=== PATIENT | male | born 1945 | race Caucasian/White ===

== ENCOUNTER → 2024-04-16 09:43 | Outpatient (REF) | payer MEDICARE, BC, SELFPAY ==
[2024-04-16 10:57] LABS: % Basophils 0.3 % (0-2); % Eosinophils 0.8 % (0-6); % Immature Granulocytes 0.5 % (0-0.5); % Lymphocytes 17.7 % (20.5-51.1); % Monocytes 8.9 % (1.7-9.3); % Neutrophils 71.8 % (42.2-75.2); Absolute Eosinophils 0.1 10^3/uL (0-0.7); Absolute Lymphocytes 1.3 10^3/uL (1.2-3.4); Absolute Monocytes 0.7 10^3/uL (0.1-0.6); Absolute Neutrophils 5.3 10^3/uL (1.4-6.5); Hematocrit 38.3 % (39.0-52.0); Hemoglobin 12.9 g/dL (13.0-18.0); Mean Corp Hgb Conc. 33.7 g/dL (33.0-37.0); Mean Corpuscular Hgb 30.6 pg (27.0-31.0); Mean Corpuscular Volume 90.8 fL (80.0-94.0); Mean Platelet Volume 10.5 fL (7.4-10.4); Nucleated Red Blood Cells % 0 % (-); Platelet Count 191 10^3/uL (130-400); Red Blood Cell Count 4.22 10^6/uL (4.70-6.10); Red Cell Dist. Width 13.4 % (11.5-14.5); White Blood Cell Count 7.3 10^3/uL (4.8-10.8)
[2024-04-16 11:29] LABS: ALT (SGPT) 30 U/L (0-50); AST (SGOT) 37 U/L (17-59); Albumin 3.9 g/dl (3.5-5.0); Alkaline Phosphatase 66 U/L (38-126); Blood Urea Nitrogen 23 mg/dl (9-20); Calcium 9.2 mg/dl (8.4-10.2); Carbon Dioxide 27 mmol/L (22-30); Chloride 107 mmol/L (98-107); Glucose 95 mg/dl (70-99); HDL Cholesterol 50 mg/dl; LDL Cholesterol, Calculated 72 mg/dl; Potassium 5.1 mmol/L (3.5-5.1); Sodium 139 mmol/L (135-145); Total Bilirubin 0.6 mg/dl (0.2-1.3); Total Cholesterol 137 mg/dl (50-199); Total Protein 6.7 g/dl (6.3-8.2); Triglyceride 79 mg/dl (10-149); Very Low Density Lipoprotein 15 mg/dl (0-30); eGFR > 60.00
[2024-04-17 12:00] LABS: Glycohemoglobin (HgbA1c) 5.6 % (4.0-5.6)
[2024-04-17 18:31] LABS: PSA Total 0.5 ng/mL (0.0-4.0)
== END ==
LOC: REG 09:43
PROVIDERS: ATTENDING PHYSICIAN Internal Medicine; FAMILY PHYSICIAN Internal Medicine Cardiovascular Disease
DX: Z00.00 Encounter for general adult medical examination without abnormal findings (principal); R73.09 Other abnormal glucose; E78.5 Hyperlipidemia, unspecified; N40.0 Benign prostatic hyperplasia without lower urinary tract symptoms; E03.9 Hypothyroidism, unspecified; R53.83 Other fatigue
CPT/HCPCS: 36415; 80053; 80061; 83036; 84153; 84154; 84443; 85025

== ENCOUNTER 2024-04-22 01:13 | Emergency (ER) | payer MEDICARE, BC, SELFPAY ==
[2024-04-22] VITALS (7 sets, daily range): BP systolic 130–176; BP diastolic 63–91; PULSE 72–89; BMI 24.6
--- NOTE | 2024-04-22 01:21 | ED.GENMED ---
History of Present Illness
<HEIDY Bowling - Last Filed: 04/22/24 05:33>
General
Chief Complaint: Dizziness
Source: patient
Exam Limitations: none
Time Seen by Provider: 04/22/24 01:21
Nursing documentation reviewed up to this point in time: agreed with
History of Present Illness
History of Present Illness:
79 year old male presents for evaluation of dizziness. Pt reports that at approximately 23:00 on 04/21 he began experiencing intermittent episodes of dizziness upon standing, relieved with lying supine. Pt denies similar episodes of dizziness in the
past. No syncopal episode reported. Pt denies fall and hitting his head. Pt describes his dizziness as a sensation of the room spinning, and endorses intermittent nausea and diaphoresis accompanying the dizziness. He is currently followed by
cardiology due to history of mechanical aortic valve and bypass surgery and is taking metoprolol 50 mg daily. Pt adds that he was started on Flomax approximately 2 months ago as well. He notes that his home BP readings over the last week have been
104-108 systolic, which is decreased from his usual home BP. Endorses recent COVID-19 infection which began on 04/08. Pt denies CP, SOB, N/V, abdominal pain, changes in stool/bloody stool, urinary symptoms, MORRISON, dysarthria, and decreased oral intake.
Past History
<HEIDY Bowling - Last Filed: 04/22/24 05:33>
Past History
ED Past Medical History: Other (Coronary disease with CABG, aortic valve it replacement with a mechanical valve, paroxysmal atrial fib after bypass, gout, but sounds like fungal balanitis)
Social History
Tobacco: Non-smoker
Alcohol: Occasional
Family History
Family History: Other (Mother with lupus)
Review of Systems
<HEIDY Bowling - Last Filed: 04/22/24 05:33>
Review of Systems
Allergies reviewed?: Yes
Constitutional: Reports no symptoms
EENT: Reports no symptoms
Respiratory: Reports no symptoms
Cardiac: Reports no symptoms
ABD/GI: Reports no symptoms
: Reports no symptoms
Musculoskeletal: Reports no symptoms
Skin: Reports no symptoms
Neurological: Reports dizzy
Endocrine: Reports no symptoms
Hematologic/Lymphatic: Reports no symptoms
Psychiatric: Reports no symptoms
Phy Exam
<ST TawnyaPR - Last Filed: 04/22/24 05:33>
General Physical Exam
General Presentation: well appearing
General age: appears stated age
General Skin: warm
General Habitus: elderly
General Mental: alert
General Hydration: appears well hydrated
ENT Exam
ENT Exam: EOMI
Cardiovascular Exam
Cardiovascular Exam: regular rate/rhythm and other (systolic click)
Pulmonary Exam
Pulmonary Exam: lungs clear and no respiratory distress
Gastrointestinal Exam
Gastrointestinal Exam: normal bowel sounds
Neurological Exam
Neurological Exam: alert, oriented x3, no motor deficits, no sensory deficits and speech normal
Skin Exam
Skin Exam: normal color
Course
<ST TawnyaPR - Last Filed: 04/22/24 05:33>
Orders/Labs/Results
Orders:
Orders
04/22/24 01:15
Electrocardiogram (*1) Urgent
Reason for Study: Vertigo / Dizzy
04/22/24 01:21
Complete Blood Count/With Diff Urgent
Comprehensive Metabolic Panel Urgent
TSH Reflex To Free T4 Urgent
Troponin I Urgent
04/22/24 01:26
D-Dimer Urgent
Prothrombin Time Urgent
Comment: ADD ON
04/22/24 01:36
Add On- LAB Urgent
Comments:: pt on coumadin
Tests Added?: pt/irn
Orthostatic VS- Treatment ONCE
04/22/24 02:07
Meclizine [Antivert] 25 mg PO NOW STA
04/22/24 03:16
0.9% Sodium Chloride 1000 ml [Nss] 1,000 ml IV BOLUS
04/22/24 03:21
Meclizine [Antivert] 25 mg PO NOW STA
Abnormal Lab Results
04/22/24 04/22/24
01:21 01:26
RBC 4.12 L 10^6/uL
(4.70-6.10)
Hgb 12.8 L g/dL
(13.0-18.0)
Hct 36.5 L %
(39.0-52.0)
MCH 31.1 H pg
(27.0-31.0)
Absolute Monos (auto) 0.9 H 10^3/uL
(0.1-0.6)
Monocytes % 13.0 H %
(1.7-9.3)
PT 23.9 H Sec
(11.4-14.6)
BUN 22 H mg/dl
(9-20)
Glucose 115 H mg/dl
(70-99)
04/22/24 01:21
04/22/24 01:21
Vital Signs
Initial and Last Documented VS:
Initial Vital Signs
Temp Pulse Resp BP Pulse Ox
98.0 F 72 16 163/75 99
04/22/24 01:16 04/22/24 01:16 04/22/24 01:16 04/22/24 01:16 04/22/24 01:16
Last Documented Vital Signs
Temp Pulse Resp BP Pulse Ox
98.0 F 82 22 138/63 99
04/22/24 01:16 04/22/24 05:00 04/22/24 05:00 04/22/24 04:00 04/22/24 04:45
<Tania R. Overton, DO - Last Filed: 04/22/24 05:28>
Orders/Labs/Results
Orders:
Orders
04/22/24 01:15
Electrocardiogram (*1) Urgent
Reason for Study: Vertigo / Dizzy
04/22/24 01:21
Complete Blood Count/With Diff Urgent
Comprehensive Metabolic Panel Urgent
TSH Reflex To Free T4 Urgent
Troponin I Urgent
04/22/24 01:26
D-Dimer Urgent
Prothrombin Time Urgent
Comment: ADD ON
04/22/24 01:36
Add On- LAB Urgent
Comments:: pt on coumadin
Tests Added?: pt/irn
Orthostatic VS- Treatment ONCE
04/22/24 02:07
Meclizine [Antivert] 25 mg PO NOW STA
04/22/24 03:16
0.9% Sodium Chloride 1000 ml [Nss] 1,000 ml IV BOLUS
04/22/24 03:21
Meclizine [Antivert] 25 mg PO NOW STA
Abnormal Lab Results
04/22/24 04/22/24
01:21 01:26
RBC 4.12 L 10^6/uL
(4.70-6.10)
Hgb 12.8 L g/dL
(13.0-18.0)
Hct 36.5 L %
(39.0-52.0)
MCH 31.1 H pg
(27.0-31.0)
Absolute Monos (auto) 0.9 H 10^3/uL
(0.1-0.6)
Monocytes % 13.0 H %
(1.7-9.3)
PT 23.9 H Sec
(11.4-14.6)
BUN 22 H mg/dl
(9-20)
Glucose 115 H mg/dl
(70-99)
04/22/24 01:21
04/22/24 01:21
Vital Signs
Initial and Last Documented VS:
Initial Vital Signs
Temp Pulse Resp BP Pulse Ox
98.0 F 72 16 163/75 99
04/22/24 01:16 04/22/24 01:16 04/22/24 01:16 04/22/24 01:16 04/22/24 01:16
Last Documented Vital Signs
Temp Pulse Resp BP Pulse Ox
98.0 F 82 22 138/63 99
04/22/24 01:16 04/22/24 05:00 04/22/24 05:00 04/22/24 04:00 04/22/24 04:45
<HEIDY Bowling - Last Filed: 04/22/24 05:33>
MDM/Problems Addressed
Differential Diagnosis Includes:
Anemia, orthostatic hypotension, dehydration, Meniere's disease, colorectal cancer, CVA
<HEIDY Bowling - Last Filed: 04/22/24 05:33>
*Critical Care Note
Total Time (30-74mins, 75-104mins- exclusive of procedures): Not Applicable
<Tania Overton DO - Last Filed: 04/22/24 05:28>
*Pulse Oximetry
Patient hypoxic: no
*EKG
Interpreted by ED Provider?: Yes
Comparison EKG: no changes ( Unchanged from previous December 2021)
Rate: normal
Rhythm: sinus
[place]: normal axis
Interval: normal QT interval
QRS Pattern: right bundle branch block
Ischemia: non-specific ST changes
*Income Tax Manager Interpretation
Rate: normal
Interpretation: normal
Rhythm: sinus
*Critical Care Note
Total Time (30-74mins, 75-104mins- exclusive of procedures): Not Applicable
<HEIDY Bowling - Last Filed: 04/22/24 05:33>
Update Note
Update Note:
05:17 - pt able to walk with assistance and reports no sensation of dizziness. Has received two doses of Meclizine
ED Attending Note
<HEIDY Bowling - Last Filed: 04/22/24 05:33>
-
Portions of this chart may have been created with voice recognition software.� Occasional wrong word or��sound alike� substitutions may have occurred due to the inherent limitations of voice recognition software.
<Tania Overton DO - Last Filed: 04/22/24 05:28>
ED Attending Note
Patient seen and examined by attending physician: Yes
I performed the substantive portion of visit, reviewed & personally made and approve the management plan that is documented in note by myself or BIANKA.: Yes
ED Attending Note:
This is a 79-year-old gentleman with history of hypertension, hyperlipidemia, CAD with prior history of CABG as well as mechanical aortic valve replacement, chronically maintained on Coumadin. He suffered COVID URI 2 weeks ago, tested positive for
COVID April 08 and admits to several day history of cough, fever with Tmax of 102, myalgias. Symptoms resolved within 3 to 4 days.
He has been feeling well over the past week but tonight around 11 PM when he stood up from the couch he suddenly became dizzy, lightheaded with brief nausea and brief diaphoresis. Symptoms improved/resolved with sitting back down but recurred each
time he attempted to stand up. He denies headache, no chest pain or palpitations, no abdominal pain.
He denies grossly black nor tarry stools but does admit to somewhat chronic partially black to brown stool mixed with call box wirer brown stool.
He has history of BPH, chronic urinary frequency, nocturia and has been following with Dr. Hooker. Started on Flomax 2 months ago. Daytime urinary frequency is markedly improved but he continues with significant nocturia getting up at least 7
times a night to urinate. He denies history of urinary obstruction/retention.
He monitors his INR at home. It was therapeutic at 2.5 on Monday, April 16. No change in Coumadin dosage.
He monitors his blood pressure at home and states over the past week his blood pressure has been mildly low at 104-105 systolic. He states his blood pressure generally runs 110-115 systolic.
GENERAL: 79-year-old gentleman appears his stated age, awake and alert, pleasant, appears in no acute distress.
EYE: pupils equal and reactive. Extraocular muscles intact. No nystagmus. Negative test of skew. Anicteric
NECK: Supple, nontender, no meningismus, no significant adenopathy. No JVD.
ENT: posterior pharynx is clear, oral mucosa is moist. Bilateral hearing aids. Nares patent.
CARDIAC: Regular rate and rhythm. Mechanical click noted
LUNGS: Clear breath sounds bilaterally, no acute respiratory distress, no wheezes/rales/rhonchi
ABDOMEN: Soft, nondistended, without focal tenderness, no r/g, no cvat. normoactive BS. Rectal exam reveals scant soft brown stool, heme-negative.
NEUROLOGICAL: Alert and oriented x3, no focal neuro deficits. Prompt vertiginous symptoms with sitting up.
SKIN: Warm and dry, normal color, skin intact. No rash.
MUSCULOSKELETAL: No C/C/E. peripheral pulses are full and equal b/l. No palpable tenderness.
PSYCH: Normal and appropriate interaction.
Patient presents with abrupt onset of dizziness most noted with standing but also markedly reproduced with repositioning from supine to sitting up.
Concern for acute vertiginous symptoms versus orthostasis. Will check orthostatic vital signs.
Labs thus far reveal mild anemia with hemoglobin of 12.8, overall similar to 1 week ago at 12.9. Eye symptoms are acute tonight, has been asymptomatic throughout the week, likely mild anemia is not a contributing factor.
Rectal exam is heme-negative.
No evidence of arrhythmia on EKG nor monitor tech.
04/22/2024 0322 AM
Patient had marked dizziness with just sitting up during orthostatic vital signs. No change in blood pressure from lying to sitting thus he was given a dose of Antivert and is currently feeling markedly improved.
He continues with very mild dizziness upon sitting up but much improved. No return of nausea.
Labs are unremarkable, similar and unchanged from 1 week ago. Troponin is negative.
INR 2.15. D-dimer is negative.
Initial hypertension improving currently 130/60.
Will give a bolus of IV fluids and another dose of Antivert for what I suspect is benign paroxysmal peripheral vertigo.
Will continue to observe and if he continues to improve we will plan to discharge to home with a short course of as needed Antivert and prompt follow-up with PCP.
Discharge Plan
Departure
Patient Disposition: Home (Routine Discharge)
Date of Disposition: 04/22/24
Time of Disposition: 05:25
Patient with high blood pressure during this ER visit?: No
Condition: Good
Discharge Problem:
acute positional vertigo
Instructions: Vertigo (a Type of Dizziness) (DC)
Prescriptions:
New
meclizine 25 mg tablet
25 mg PO QID PRN (Reason: dizziness, nausea) Qty: 20 0RF
No Action
cyclobenzaprine 10 MG tablet
10 mg PO HS
warfarin [Jantoven] 10 MG tablet
10 mg PO HS
allopurinol 100 MG tablet
100 mg PO HS
levothyroxine 100 MCG tablet
100 mcg PO DAILY AT 0700
montelukast 10 MG tablet
10 mg PO HS
rosuvastatin [Crestor] 40 MG tablet
40 mg PO HS
cholecalciferol (vitamin D3) 2,000 UNITS tablet
2,000 units PO QPM
acetaminophen 325 MG tablet
650 mg PO Q4HPRN PRN (Reason: mild pain) Qty: 1 0RF
metoprolol succinate 25 mg Tablet Extended Release 24 Hr
25 mg PO HS
amlodipine
Referrals:
Marvin Simpson MD [Family Provider] - Call in 1-3 days for appt
Interventions
Interventions:
*Risk Screen - Suicide Last Done: 04/22/24 01:16
*General Assessment Last Done: 04/22/24 01:16
*Neglect/Abuse Screening Last Done: 04/22/24 01:16
*ED COVID-19 Vaccine History Last Done: 04/22/24 01:16
ED- Neurological Assessment Last Done: 04/22/24 01:20
Discharge Date and Time
Print Language: LUX[place]BOURG[place]
[2024-04-22 01:27] LABS: % Basophils 0.3 % (0-2); % Immature Granulocytes 0.3 % (0-0.5); % Neutrophils 62.4 % (42.2-75.2); Absolute Eosinophils 0.1 10^3/uL (0-0.7); Absolute Lymphocytes 1.6 10^3/uL (1.2-3.4); Absolute Monocytes 0.9 10^3/uL (0.1-0.6); Absolute Neutrophils 4.4 10^3/uL (1.4-6.5); Hematocrit 36.5 % (39.0-52.0); Hemoglobin 12.8 g/dL (13.0-18.0); Mean Corp Hgb Conc. 35.1 g/dL (33.0-37.0); Mean Corpuscular Hgb 31.1 pg (27.0-31.0); Mean Corpuscular Volume 88.6 fL (80.0-94.0); Mean Platelet Volume 9.9 fL (7.4-10.4); Nucleated Red Blood Cells % 0 % (-); Platelet Count 192 10^3/uL (130-400); Red Blood Cell Count 4.12 10^6/uL (4.70-6.10); Red Cell Dist. Width 13.3 % (11.5-14.5)
[2024-04-22 01:59] LABS: Troponin I < 0.012 ng/ml
[2024-04-22 02:03] LABS: ALT (SGPT) 19 U/L (0-50); AST (SGOT) 31 U/L (17-59); Albumin 3.8 g/dl (3.5-5.0); Alkaline Phosphatase 68 U/L (38-126); Blood Urea Nitrogen 22 mg/dl (9-20); Calcium 9.2 mg/dl (8.4-10.2); Carbon Dioxide 24 mmol/L (22-30); Chloride 107 mmol/L (98-107); Estimated Creatinine Clearance 73 ml/min; Glucose 115 mg/dl (70-99); Potassium 4.1 mmol/L (3.5-5.1); Sodium 136 mmol/L (135-145); Total Bilirubin 0.7 mg/dl (0.2-1.3); Total Protein 6.5 g/dl (6.3-8.2); eGFR > 60.00
[2024-04-22 02:04] LABS: INR 2.15; PT 23.9 Sec (11.4-14.6)
[2024-04-22 02:06] LABS: D-Dimer 0.27 ug/mlFEU (0.00-0.50)
[2024-04-22 02:13] LABS: TSH Reflex To Free T4 2.23 uIU/ml (0.47-4.68)
[2024-04-22] MEDS: ANTIVERT 25 MG PO ×2 (02:15→03:38)
[2024-04-22] MEDS: NSS 1000 IV (03:36)
== END 2024-04-22 05:45 | disposition home or self-care (01) ==
LOC: EMR 01:13
PROVIDERS: EMERGENCY PHYSICIAN Emergency Medicine; FAMILY PHYSICIAN Internal Medicine
DX: H81.10 Benign paroxysmal vertigo, unspecified ear (principal); I10 Essential (primary) hypertension; I25.10 Atherosclerotic heart disease of native coronary artery without angina pectoris; E78.5 Hyperlipidemia, unspecified
CPT/HCPCS: 99284; 96360; 80053; 84443; 84484; 85025; 85379; 85610; 93005

== ENCOUNTER → 2024-06-03 08:14 | Outpatient (REF) | payer MEDICARE, BC, SELFPAY ==
[2024-06-03 09:44] LABS: % Basophils 0.5 % (0-2); % Eosinophils 1.8 % (0-6); % Immature Granulocytes 0.2 % (0-0.5); % Lymphocytes 21.7 % (20.5-51.1); % Neutrophils 64.8 % (42.2-75.2); Absolute Eosinophils 0.1 10^3/uL (0-0.7); Absolute Lymphocytes 1.2 10^3/uL (1.2-3.4); Absolute Monocytes 0.6 10^3/uL (0.1-0.6); Absolute Neutrophils 3.6 10^3/uL (1.4-6.5); Hematocrit 40.7 % (39.0-52.0); Hemoglobin 13.7 g/dL (13.0-18.0); Mean Corp Hgb Conc. 33.7 g/dL (33.0-37.0); Mean Corpuscular Hgb 31.4 pg (27.0-31.0); Mean Corpuscular Volume 93.3 fL (80.0-94.0); Mean Platelet Volume 10.6 fL (7.4-10.4); Nucleated Red Blood Cells % 0 % (-); Platelet Count 155 10^3/uL (130-400); Red Blood Cell Count 4.36 10^6/uL (4.70-6.10); Red Cell Dist. Width 13.7 % (11.5-14.5); White Blood Cell Count 5.5 10^3/uL (4.8-10.8)
[2024-06-03 10:23] LABS: ALT (SGPT) 27 U/L (0-50); AST (SGOT) 42 U/L (17-59); Alkaline Phosphatase 60 U/L (38-126); Blood Urea Nitrogen 17 mg/dl (9-20); Calcium 9.8 mg/dl (8.4-10.2); Carbon Dioxide 28 mmol/L (22-30); Chloride 106 mmol/L (98-107); Glucose 94 mg/dl (70-99); HDL Cholesterol 65 mg/dl; LDL Cholesterol, Calculated 67 mg/dl; Potassium 4.9 mmol/L (3.5-5.1); Sodium 142 mmol/L (135-145); Total Bilirubin 0.8 mg/dl (0.2-1.3); Total Cholesterol 147 mg/dl (50-199); Total Protein 6.7 g/dl (6.3-8.2); Triglyceride 78 mg/dl (10-149); Very Low Density Lipoprotein 15 mg/dl (0-30); eGFR > 60.00
[2024-06-03 10:43] LABS: TSH 1.01 uIU/ml (0.47-4.68)
[2024-06-04 18:22] LABS: PSA Total 0.6 ng/mL (0.0-4.0)
== END ==
LOC: REG 08:14
PROVIDERS: ATTENDING PHYSICIAN Internal Medicine
DX: I10 Essential (primary) hypertension (principal); Z00.00 Encounter for general adult medical examination without abnormal findings; R53.83 Other fatigue; E78.5 Hyperlipidemia, unspecified; R97.20 Elevated prostate specific antigen [PSA]
CPT/HCPCS: 36415; 80053; 80061; 84153; 84154; 84443; 85025

== ENCOUNTER 2024-10-04 16:27 | Emergency (ER) | payer MEDICARE, BC, SELFPAY ==
[2024-10-04 16:47] VITALS: BP 153/94
[2024-10-04 17:32] LABS: % Basophils 0.2 % (0-2); % Eosinophils 0.2 % (0-6); % Immature Granulocytes 0.4 % (0-0.5); % Lymphocytes 16.2 % (20.5-51.1); % Monocytes 9.2 % (1.7-9.3); % Neutrophils 73.8 % (42.2-75.2); Absolute Lymphocytes 1.3 10^3/uL (1.2-3.4); Absolute Monocytes 0.8 10^3/uL (0.1-0.6); Hematocrit 42.8 % (39.0-52.0); Hemoglobin 14.4 g/dL (13.0-18.0); Mean Corp Hgb Conc. 33.6 g/dL (33.0-37.0); Mean Corpuscular Hgb 30.6 pg (27.0-31.0); Mean Corpuscular Volume 91.1 fL (80.0-94.0); Mean Platelet Volume 10.5 fL (7.4-10.4); Nucleated Red Blood Cells % 0 % (-); Platelet Count 176 10^3/uL (130-400); Red Cell Dist. Width 13.2 % (11.5-14.5); White Blood Cell Count 8.2 10^3/uL (4.8-10.8)
[2024-10-04 17:36] LABS: INR 1.65
[2024-10-04 17:37] LABS: APTT 30.8 Sec (23.4-35.0)
[2024-10-04 17:40] LABS: ALT (SGPT) 27 U/L (0-50); AST (SGOT) 38 U/L (17-59); Albumin 4.4 g/dl (3.5-5.0); Alkaline Phosphatase 65 U/L (38-126); Blood Urea Nitrogen 20 mg/dl (9-20); Calcium 9.4 mg/dl (8.4-10.2); Carbon Dioxide 24 mmol/L (22-30); Chloride 105 mmol/L (98-107); Glucose 106 mg/dl (70-99); Potassium 4.3 mmol/L (3.5-5.1); Sodium 136 mmol/L (135-145); Total Bilirubin 0.8 mg/dl (0.2-1.3); Total Protein 7.2 g/dl (6.3-8.2); eGFR > 60.00
[2024-10-04 18:58] VITALS: BP 133/83
[2024-10-04 19:00] VITALS: BP 134/64
--- NOTE | 2024-10-04 19:21 | ED.CVA ---
History of Present Illness
General
Chief Complaint: Headache
Source: patient and spouse
Exam Limitations: none
Time Seen by Provider: 10/04/24 19:18
Nursing documentation reviewed up to this point in time: agreed with
Onset of Stroke Symptoms
Onset of symptoms known: Yes
Date of onset of symptoms: 10/04/24
Time of onset of symptoms: 12:00
Time pt last seen normal is known: Yes
Date last time pt seen normal: 10/04/24
History of Present Illness
History of Present Illness:
79-year-old male presents to the emergency department due to a migraine around noon, and then difficulty with memory recall, expressive aphasia difficulty pronouncing words. Symptom lasted 45 minutes. They felt bigger than his normal migraine
auras.
Past History
Past History
ED Past Medical History: Arrthythmia, CAD, HTN, Hypercholesterolemia, Other (Migraine) and Other (Coronary disease with CABG, aortic valve it replacement with a mechanical valve, paroxysmal atrial fib after bypass, gout, but sounds like fungal
balanitis)
Social History
Tobacco: Non-smoker
Alcohol: Occasional
Drug: None
Family History
Family History: Other (Mother with lupus)
Review of Systems
Review of Systems
Allergies reviewed?: Yes
All Other Systems: Not applicable
Constitutional: Reports no symptoms
EENT: Reports no symptoms
Respiratory: Reports no symptoms
Cardiac: Reports no symptoms
ABD/GI: Reports no symptoms
: Reports no symptoms
Musculoskeletal: Reports no symptoms
Skin: Reports no symptoms
Neurological: Reports other (difficulty speaking)
Endocrine: Reports no symptoms
Hematologic/Lymphatic: Reports no symptoms
Psychiatric: Reports no symptoms
Phy Exam
Physical Exam
Physical Exam:
Physical Exam
General: no apparent distress, not acutely ill
Neck: supple. no meningeal signs. normal posterior pharynx
Heart: s1/s2 regular rate and rhythm, no murmur. equal radial
pulses.
HEENT: Pupils equal round reactive to light, EOMI
Lungs: no acute respiratory distress. clear bilaterally
Abdomen: normal bowel sounds. not tender. no CVAT
Neuro: alert and oriented. no focal neurological deficits cranial nerves II through XII intact
Skin: no rash
Psychiatric: well kept. interactive and cooperative
Extremities: no edema. no calf tenderness. negative homans. good distal pulses
NIH Stroke Score
Level of Consciousness: 0 - Alert
LOC questions: 0-Answers both correctly
LOC Commands: 0-Performs both correctly
Best Gaze: 0-Normal
Visual [place]: 0=Normal, no visual loss
Facial palsy: 0=Normal, symmetrical
Motor - Right Arm: 0=No drift 10 seconds
Motor - Left Arm: 0=No drift 10 seconds
Motor - Right Le-No drift 5 seconds
Motor - Left Le-No drift 5 seconds
Limb Ataxia: 0-Absent
Sensation: 0-Normal
Best Language: 0-No aphasia
Dysarthria: 0-Normal
Extinction and Inattention: 0-No abnormality
Total Score:: 0
Course
Orders/Labs/Results
Orders:
Orders
10/04/24 16:50
CT Head W/o Iv Contrast Urgent
Comment:
Reason For Exam: expressive aphasia, migraine aura
10/04/24 16:53
ECG [Electrocardiogram (*1)] Urgent
Reason for Study: TIA/Stroke
EKG- Treatment ONCE
10/04/24 17:05
Complete Blood Count/With Diff Urgent
Comprehensive Metabolic Panel Urgent
PTT Urgent
Prothrombin Time Urgent
10/04/24 19:47
CT Head & Neck Angio W/wo IV Urgent
Comment:
Reason For Exam: expressive aphasia, headache
Abnormal Lab Results
10/04/24
17:05
MPV 10.5 H fL
(7.4-10.4)
Absolute Monos (auto) 0.8 H 10^3/uL
(0.1-0.6)
Lymphocytes % 16.2 L %
(20.5-51.1)
PT 20.0 H Sec
(11.4-14.6)
Glucose 106 H mg/dl
(70-99)
10/04/24 17:05
10/04/24 17:05
Vital Signs
Initial and Last Documented VS:
Initial Vital Signs
Temp Pulse Resp BP Pulse Ox
98.0 F 89 20 153/94 95
10/04/24 16:47 10/04/24 16:47 10/04/24 16:47 10/04/24 16:47 10/04/24 16:47
Last Documented Vital Signs
Temp Pulse Resp BP Pulse Ox
98.0 F 82 24 167/78 98
10/04/24 16:47 10/04/24 20:42 10/04/24 19:40 10/04/24 20:41 10/04/24 20:42
MDM/Problems Addressed
Differential Diagnosis Includes:
CVA, TIA
MDM/Problems Addressed:
79-year-old male with migraine versus TIA. Stable for discharge. Follow-up with primary care and vascular surgery due to carotid stenosis seen on CTA.
Chronic conditions affecting care: HTN and Cardiomyopathy
Acute Exacerbation and/or Progression of Chronic Illness: Cardiomyopathy
*Radiology
Radiology exam reviewed: radiology read reviewed (CT head and CT angiography show 65% stenosed right carotid)
*Pulse Oximetry
Patient hypoxic: no
*EKG
Interpreted by ED Provider?: Yes
EKG Intrepretation Date: 10/04/24
EKG Intrepretation Time: 16:59
Interpretation: abnormal
Comparison EKG: no changes
Heart Rate: 86
Rate: normal
Rhythm: sinus
[place]: normal axis
Interval: normal interval
QRS Pattern: right bundle branch block
Ischemia: non-specific ST changes
*Inspector Aide Interpretation
Rate: Inspector Aide- N/A
*Critical Care Note
Total Time (30-74mins, 75-104mins- exclusive of procedures): Not Applicable
Data Reviewed
Review of Other/Old Records Reveals: Labs (Prior creatinine 1.1 on 06/03/2024)
Source: records
Prescriptions/Medications Considered But Not Given:
TNK not indicated
Patient Management
Social determinants of health affecting care: Living situation
Discussion with other providers: [facility] (Discussed with neurology, who does not recommend admission, recommends follow-up with vascular surgery)
Escalation/DeEscalation of care consider admission/obs:
Admission not indicated
ED Attending Note
-
Portions of this chart may have been created with voice recognition software.� Occasional wrong word or��sound alike� substitutions may have occurred due to the inherent limitations of voice recognition software.
Discharge Plan
Departure
Patient Disposition: Home (Routine Discharge)
Date of Disposition: 10/04/24
Time of Disposition: 22:52
Patient with high blood pressure during this ER visit?: Yes
Condition: Good
Discharge Problem:
TIA (transient ischemic attack), Migraine, Carotid artery stenosis
Instructions: Migraines (DC), Transient Ischemic Attack ED, BLOOD PRESSURE
Prescriptions:
No Action
cyclobenzaprine 10 MG tablet
10 mg PO HS
warfarin [Jantoven] 10 MG tablet
10 mg PO HS
allopurinol 100 MG tablet
100 mg PO HS
levothyroxine 100 MCG tablet
100 mcg PO DAILY AT 0700
montelukast 10 MG tablet
10 mg PO HS
rosuvastatin [Crestor] 40 MG tablet
40 mg PO HS
cholecalciferol (vitamin D3) 2,000 UNITS tablet
2,000 units PO QPM
acetaminophen 325 MG tablet
650 mg PO Q4HPRN PRN (Reason: mild pain) Qty: 1 0RF
metoprolol succinate 25 mg Tablet Extended Release 24 Hr
25 mg PO HS
amlodipine
meclizine 25 mg tablet
25 mg PO QID PRN (Reason: dizziness, nausea) Qty: 20 0RF
Referrals:
Zulma Yang MD [Non-Admitting Privileges] - Call in 1-3 days for appt
Eugenio Roach MD [Active] - Call in 1-3 days for appt
Marvin Simpson MD [Family Provider] -
Interventions
Interventions:
*Risk Screen - Suicide Last Done: 10/04/24 19:49
*General Assessment Last Done: 10/04/24 19:49
*Neglect/Abuse Screening Last Done: 10/04/24 19:49
ED- Fall Risk Assessment Last Done: 10/04/24 19:49
*ED COVID-19 Vaccine History Last Done: 10/04/24 19:49
ED- Neurological Assessment Last Done: 10/04/24 19:49
Discharge Date and Time
Print Language: ARABIC
[2024-10-04 19:49] VITALS: BMI 24.0
[2024-10-04 20:41] VITALS: BP 167/78
== END 2024-10-05 00:15 | disposition home or self-care (01) ==
LOC: EMR 16:27
PROVIDERS: Emergency Medicine; EMERGENCY PHYSICIAN Emergency Medicine; FAMILY PHYSICIAN Internal Medicine
DX: G45.9 Transient cerebral ischemic attack, unspecified (principal); R47.01 Aphasia; G43.109 Migraine with aura, not intractable, without status migrainosus; I42.9 Cardiomyopathy, unspecified; I45.10 Unspecified right bundle-branch block; I25.10 Atherosclerotic heart disease of native coronary artery without angina pectoris; I10 Essential (primary) hypertension; Z95.1 Presence of aortocoronary bypass graft; E78.00 Pure hypercholesterolemia, unspecified; I48.0 Paroxysmal atrial fibrillation; M10.9 Gout, unspecified; K57.90 Diverticulosis of intestine, part unspecified, without perforation or abscess without bleeding; M19.90 Unspecified osteoarthritis, unspecified site; M48.00 Spinal stenosis, site unspecified; E03.9 Hypothyroidism, unspecified; F32.A Depression, unspecified; Z95.2 Presence of prosthetic heart valve; Z88.5 Allergy status to narcotic agent; Z88.6 Allergy status to analgesic agent; Z88.1 Allergy status to other antibiotic agents; Z91.040 Latex allergy status
CPT/HCPCS: 99285; 70450; 70496; 70498; 80053; 85025; 85610; 85730; 93005; Q9967

== ENCOUNTER → 2024-10-23 10:01 | Outpatient (REF) | payer MEDICARE, BC, SELFPAY ==
[2024-10-23 11:25] LABS: PT 20.5 Sec (11.4-14.6)
== END ==
LOC: REG 10:01
PROVIDERS: ATTENDING PHYSICIAN Internal Medicine Cardiovascular Disease; FAMILY PHYSICIAN Internal Medicine
DX: Z95.2 Presence of prosthetic heart valve (principal); Z79.01 Long term (current) use of anticoagulants
CPT/HCPCS: 36415; 85610

== ENCOUNTER → 2025-01-01 16:14 | Outpatient (REF) | payer MEDICARE, BC, SELFPAY ==
[2025-01-01 16:42] LABS: Urine Albumin Negative (Neg - Trace); Urine Bilirubin Negative (Negative); Urine Character Clear (Clear); Urine Color Yellow; Urine Glucose Negative (Negative); Urine Ketone Negative (Negative); Urine Leukocyte Negative (Negative); Urine Nitrite Negative (Negative); Urine Occult Blood 3+ (Negative); Urine Specific Gravity 1.005 (<1.030); Urine Urobilinogen Negative (Neg - 1+); Urine pH 6.5 (5.0-9.0)
[2025-01-01 16:56] LABS: Urine Bacteria Few (Negative); Urine Red Blood Cell 0-2 /HPF (0-2); Urine Squamous Cell 0-2 /LPF (Few); Urine White Cell 0-2 /HPF (0-5)
== END ==
LOC: CLAB 16:14
PROVIDERS: ATTENDING PHYSICIAN Specialist
DX: N39.0 Urinary tract infection, site not specified (principal)
CPT/HCPCS: 81003; 81015; 87086

== ENCOUNTER → 2025-01-21 13:37 | Outpatient (REF) | payer MEDICARE, BC, SELFPAY ==
[2025-01-21 16:34] LABS: Urine Albumin 1+ (Neg - Trace); Urine Bilirubin Negative (Negative); Urine Character Clear (Clear); Urine Color Yellow; Urine Glucose Negative (Negative); Urine Ketone Negative (Negative); Urine Leukocyte Negative (Negative); Urine Nitrite Negative (Negative); Urine Occult Blood 3+ (Negative); Urine Urobilinogen Negative (Neg - 1+)
[2025-01-21 17:16] LABS: Urine Bacteria Few (Negative); Urine Squamous Cell 0-2 /LPF (Few)
== END ==
LOC: CLAB 13:37
PROVIDERS: ATTENDING PHYSICIAN Specialist
DX: R39.9 Unspecified symptoms and signs involving the genitourinary system (principal)
CPT/HCPCS: 81003; 81015; 87086

== ENCOUNTER → 2025-03-27 06:44 | Outpatient (REF) | payer MEDICARE, BC, SELFPAY | LOC: RCS 06:44 | PROVIDERS: ATTENDING PHYSICIAN Internal Medicine Cardiovascular Disease; FAMILY PHYSICIAN Internal Medicine | DX: Z95.1 Presence of aortocoronary bypass graft (principal); Z95.2 Presence of prosthetic heart valve | CPT/HCPCS: 93306 ==

== ENCOUNTER → 2025-04-09 07:01 | Outpatient (REF) | payer MEDICARE, BC, SELFPAY ==
[2025-04-09 08:07] LABS: Hematocrit 41.0 % (39.0-52.0); Hemoglobin 13.5 g/dL (13.0-18.0); Mean Corp Hgb Conc. 32.9 g/dL (33.0-37.0); Mean Corpuscular Volume 94.5 fL (80.0-94.0); Nucleated Red Blood Cells % 0 % (-); Platelet Count 144 10^3/uL (130-400); Red Cell Dist. Width 13.2 % (11.5-14.5)
[2025-04-09 08:41] LABS: ALT (SGPT) 29 U/L (0-50); AST (SGOT) 33 U/L (17-59); Albumin 4.2 g/dl (3.5-5.0); Alkaline Phosphatase 55 U/L (38-126); Blood Urea Nitrogen 20 mg/dl (9-20); Calcium 9.6 mg/dl (8.4-10.2); Carbon Dioxide 26 mmol/L (22-30); Chloride 109 mmol/L (98-107); Glucose 88 mg/dl (70-99); HDL Cholesterol 60 mg/dl; LDL Cholesterol, Calculated 69 mg/dl; Potassium 4.6 mmol/L (3.5-5.1); Sodium 141 mmol/L (135-145); Total Protein 7.0 g/dl (6.3-8.2); Very Low Density Lipoprotein 14 mg/dl (0-30); eGFR > 60.00
[2025-04-09 09:04] LABS: TSH 2.32 uIU/ml (0.47-4.68)
== END ==
LOC: REG 07:01
PROVIDERS: ATTENDING PHYSICIAN Internal Medicine; REFERRING PHYSICIAN Internal Medicine Cardiovascular Disease
DX: I10 Essential (primary) hypertension (principal); Z87.09 Personal history of other diseases of the respiratory system; E78.5 Hyperlipidemia, unspecified; Z00.00 Encounter for general adult medical examination without abnormal findings; R97.20 Elevated prostate specific antigen [PSA]
CPT/HCPCS: 36415; 80053; 80061; 84153; 84154; 84443; 85025

== ENCOUNTER → 2025-04-28 14:13 | Outpatient (REF) | payer MEDICARE, BC, SELFPAY | LOC: RAD 14:13 | PROVIDERS: ATTENDING PHYSICIAN Specialist; FAMILY PHYSICIAN Internal Medicine | DX: N20.0 Calculus of kidney (principal) | CPT/HCPCS: 74018 ==

== ENCOUNTER → 2025-05-21 13:29 | Outpatient (REF) | payer MEDICARE, BC, SELFPAY | LOC: RAD 13:29 | PROVIDERS: ATTENDING PHYSICIAN Surgery Vascular Surgery; FAMILY PHYSICIAN Internal Medicine; REFERRING PHYSICIAN Internal Medicine Cardiovascular Disease | DX: I65.23 Occlusion and stenosis of bilateral carotid arteries (principal) | CPT/HCPCS: 93880 ==

== ENCOUNTER → 2025-08-08 14:31 | Outpatient (REF) | payer MEDICARE, BC, SELFPAY | LOC: REG 14:31 | PROVIDERS: ATTENDING PHYSICIAN Specialist; FAMILY PHYSICIAN Internal Medicine | DX: R31.0 Gross hematuria (principal) | CPT/HCPCS: 36415; 84153; 84154 ==

== ENCOUNTER → 2025-09-03 07:26 | Outpatient (REF) | payer MEDICARE, BC, SELFPAY ==
[2025-09-03 09:15] LABS: Hematocrit 40.4 % (39.0-52.0); Hemoglobin 13.6 g/dL (13.0-18.0); Mean Corp Hgb Conc. 33.7 g/dL (33.0-37.0); Mean Corpuscular Volume 93.1 fL (80.0-94.0); Platelet Count 129 10^3/uL (130-400); Red Cell Dist. Width 13.2 % (11.5-14.5)
[2025-09-03 09:23] LABS: Blood Urea Nitrogen 19 mg/dl (9-20); Calcium 9.3 mg/dl (8.4-10.2); Carbon Dioxide 27 mmol/L (22-30); Chloride 106 mmol/L (98-107); Glucose 87 mg/dl (70-99); Potassium 4.3 mmol/L (3.5-5.1); Sodium 137 mmol/L (135-145); eGFR > 60.00
== END ==
LOC: SDSPAT 07:26
PROVIDERS: ATTENDING PHYSICIAN Specialist; FAMILY PHYSICIAN Internal Medicine; OTHER PHYSICIAN Internal Medicine Cardiovascular Disease
DX: Z01.818 Encounter for other preprocedural examination (principal)
CPT/HCPCS: 80048; 85027

== ENCOUNTER → 2025-09-05 14:06 | Outpatient (REF) | payer MEDICARE, BC, SELFPAY ==
[2025-09-05 15:02] LABS: Urine Character Slightly Cloudy (Clear)
[2025-09-05 15:29] LABS: Urine Squamous Cell 0-2 /LPF (Few); Urine Urothelial Cell 0-2 /LPF (FEW)
[2025-09-05 15:31] LABS: Urine Red Blood Cell 80-90 /HPF (0-2); Urine White Cell 0-2 /HPF (0-5)
== END ==
LOC: REG 14:06
PROVIDERS: ATTENDING PHYSICIAN Specialist; FAMILY PHYSICIAN Internal Medicine
DX: N39.0 Urinary tract infection, site not specified (principal)
CPT/HCPCS: 81003; 81015; 87086

== ENCOUNTER 2025-09-09 06:25 | Day surgery (SDC) | payer MEDICARE, BC, SELFPAY ==
[2025-09-03 07:39] VITALS: BMI 22.7
[2025-09-09] VITALS (9 sets, daily range): BP systolic 105–153; BP diastolic 48–72; BMI 22.7
[2025-09-09] MEDS: CYSVIEW KIT 100 MG INTRAVES (09:59)
[2025-09-09] MEDS: NORMOSOL-R/PLASMALYTE-A 1000 IV (10:15)
== END 2025-09-09 14:04 | disposition home or self-care (01) ==
LOC: SDS 06:25
PROVIDERS: ATTENDING PHYSICIAN Specialist; FAMILY PHYSICIAN Internal Medicine
DX: N30.90 Cystitis, unspecified without hematuria (principal); N32.9 Bladder disorder, unspecified; R31.0 Gross hematuria
CPT/HCPCS: 52235; 52204; C9738; 88305; 88307; A9589

== ENCOUNTER 2025-09-10 00:18 | Emergency (ER) | payer MEDICARE, BC, SELFPAY ==
[2025-09-10] VITALS (7 sets, daily range): BP systolic 102–177; BP diastolic 50–87; BMI 22.1
--- NOTE | 2025-09-10 01:13 | ED.GENMED ---
History of Present Illness
General
Chief Complaint: Male Genito-Urinary Symptoms
Source: patient and records
Exam Limitations: none
Time Seen by Provider: 09/10/25 00:57
Nursing documentation reviewed up to this point in time: agreed with
History of Present Illness
History of Present Illness:
Note:
CHIEF COMPLAINT(S)
- Urinary incontinence post-procedure
- Moderate pelvic pain post-procedure
HISTORY OF PRESENT ILLNESS
The patient is a 80-year-old male with a history of transient ischemic attack (TIA), mechanical aortic valve warfarin, hypothyroidism, htn, hlp,CVA, who presents to the ER today with concerns of urinary incontinence and severe pelvic discomfort
following a recent urological procedure yesterday. He had a transurethral resection of bladder tumor done with Dr. Hooker. Upon returning home post-procedure, the patient noted urinary incontinence, urinating every 15 minutes, with episodes of
urine leakage upon standing. This increased in frequency, requiring continuous sitting on the toilet. The pain was described as severe, affecting his ability to concentrate. He reports that it is frankly bloody. He denies lightheadedness, dizziness,
syncopal episodes. Additionally, the patient expressed concern over a forgotten dose of medication, which he relates to his previous TIA. In the past, TIA symptoms included slurred speech and confusion, notably with difficulties recalling numbers,
but none of these symptoms are currently present. He is anxious that missing his amlodipine dose this evening will contribute to the development of a TIA. He denies weakness in one side of the body vs the other, paresthesias, visual changes. The
patient was not taking warfarin as he was on a pause protocol post-procedure, being bridged with enoxaparin. The pain appears to have increased the patients blood pressure. The patient attempted [id number] pain medication (Azo), which was
ineffective. The patient is hesitant about taking tramadol due to a history of adverse reactions, including rash and dizziness. He has had no allergy to morphine.
PHYSICAL EXAM
General: Patient is well appearing, in no acute distress
Skin: Warm and dry, no rashes or lesions
Head: Normocephalic, atraumatic
Neck: Supple, trachea midline
Eyes, Ears, Nose, Mouth, and Throat
Cardiovascular: Regular rate and rhythm, no murmurs
Respiratory: Normal respiratory effort, no wheezes, rales, or rhonchi
Gastrointestinal: No abdominal tenderness to palpation no palpable masses
Musculoskeletal: Normal gait
Neurological: GCS15, CN II-XII intact
Psychiatric: Normal mood and affect
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
-never smoked
-no alcohol or illicit drugs
PLAN
1. Pain Management: Start morphine intravenously for immediate pain relief since the patient reports significant pain post-procedure and a history of not tolerating tramadol well.
2. Imaging and Urinary Retention: Perform an bladder scan to assess for urinary retention or potential clots following the recent urological procedure.
3. Laboratory Tests: Obtain necessary laboratory work to further evaluate the patients condition post-procedure.
4. Medication Review: Ensure the patient resumes warfarin as per bridging protocol after obtaining clearance related to the procedure.
Will give dose of amlodipine now as patient missed his home dose
5. Monitoring: Continuous observation of the patient�s pain levels, urinary output, and overall stability
DIFFERENTIAL DIAGNOSIS
The Differential Diagnosis includes, in no particular order and is not limited to:
1. Urinary tract infection
2. Post-operative urinary retention
3. Bladder spasm or overactivity
4. Urinary tract obstruction due to clot or edema
5. Medication side effects
6. Recurrence of TIA
7. Hyponatremia or other metabolic disturbance post-procedure
8. Detrol (tolterodine tartrate) side effects
9. Psychological response to procedure and medication stress
10. Urosepsis or broader infectious process
LABS
-INR normal
-mild leukocytosis likely reactive
-total bili 2.0, LFTs normal, no abdominal pain or jaundice, no diarrhea or vomiting, can follow up as outpatient
-mild hyponatremia
IMAGING
Not indicated
CONSULTANTS
Case reviewed with ED attending
Case reviewed with Dr. Hooker who is aware of plan
OK with covering with fosfomycin in light of nitrites and bacteria on urinalysis
OK with patient going home with 22 colunga; he will see in the office in a few days
CHART REVIEW
-Reviewed operative report and H+P from 09/09/25
MDM/DISPOSITION
The patient is a 80-year-old male with a history of transient ischemic attack (TIA), mechanical aortic valve warfarin, hypothyroidism, htn, hlp,CVA, who presents to the ER today with concerns of urinary incontinence and severe pelvic discomfort
following a recent urological procedure yesterday. Bladder scan reveals urinary retention of [address] col[address]a was placed anticipating need for CBI in light of patient's pelvic pressure. Colunga placed with urine draining no clear evidence of clots
minimal sediment. With intermittent irrigation redness improves, urine remains yellow/bright orange patient did take azo. Dr. Hooker aware of plan discussed via tiger text. Patient will go home with colunga in place and will cover with fosfomycin.
Encouraged follow up with PCP and repeat lab work. Discussed return precautios.
Past History
Past History
ED Past Medical History: Arrthythmia, CAD, HTN, Hypercholesterolemia, Other (Migraine) and Other (Coronary disease with CABG, aortic valve it replacement with a mechanical valve, paroxysmal atrial fib after bypass, gout, but sounds like fungal
balanitis)
Social History
Tobacco: Non-smoker
Alcohol: Occasional
Drug: None
Family History
Family History: Other (Mother with lupus)
Phy Exam
Physical Exam
Physical Exam:
see hpi
Sepsis
Sepsis Screening
Sepsis Assessment: Sepsis Ruled Out (patient slightly tachycardic due to pain)
Sepsis Screen
Sepsis Screen: Sepsis Ruled Out
Date: 09/10/25
Time: 10:46
Course
Orders/Labs/Results
Orders:
Orders
09/10/25 00:59
Bladder Scan- Treatment ONCE
09/10/25 01:14
Amlodipine [Norvasc] 2.5 mg PO DAILY ONE
Morphine Sulfate 4 mg IV NOW STA
09/10/25 01:27
Complete Blood Count/With Diff Urgent
Comprehensive Metabolic Panel Urgent
PTT Urgent
Prothrombin Time Urgent
09/10/25 03:35
Urinalysis Reflex To Culture Urgent
Date Specimen was Collected: 09/10/25
Time Specimen was Collected: 03:34
Urine Microscopic Reflex Cult Urgent
Urine Culture Urgent
CALEB Source: U
Specimen Description:
Date Specimen was Collected: 09/10/25
Time Specimen was Collected: 03:34
09/10/25 05:22
Fosfomycin [Monurol] 3 gm PO ONCE ONE
Abnormal Lab Results
09/10/25 09/10/25
01:27 03:35
WBC 12.9 H 10^3/uL
(4.8-10.8)
MCH 31.1 H pg
(27.0-31.0)
MPV 10.8 H fL
(7.4-10.4)
Absolute Neuts (auto) 11.7 H 10^3/uL
(1.4-6.5)
Absolute Lymphs (auto) 0.5 L 10^3/uL
(1.2-3.4)
Absolute Monos (auto) 0.7 H 10^3/uL
(0.1-0.6)
Neutrophils % 90.5 H %
(42.2-75.2)
Lymphocytes % 3.7 L %
(20.5-51.1)
Sodium 131 L mmol/L
(135-145)
BUN 21 H mg/dl
(9-20)
Glucose 149 H mg/dl
(70-99)
Total Bilirubin 2.0 H mg/dl
(0.2-1.3)
Urine Ketones 1+ A
(Negative)
Ur Occult Blood Reflex 4+ A
(Negative)
Urine Nitrite (Reflex) Positive A
(Negative)
Urine Bilirubin 1+ A
(Negative)
Urine Urobilinogen 2+ A
(Neg - 1+)
Urine RBC >100 A /HPF
(0-2)
Urine Bacteria (Reflex) Few A
(Negative)
Urine Albumin (Reflex) 3+ A
(Neg - Trace)
09/10/25 01:27
09/10/25 01:27
Vital Signs
Initial and Last Documented VS:
Initial Vital Signs
Temp Pulse Resp BP Pulse Ox
98.4 F 97 20 162/87 97
09/10/25 00:21 09/10/25 00:21 09/10/25 00:21 09/10/25 00:21 09/10/25 00:21
Last Documented Vital Signs
Temp Pulse Resp BP Pulse Ox
98.4 F 74 16 102/54 97
09/10/25 00:21 09/10/25 06:15 09/10/25 06:15 09/10/25 06:00 09/10/25 06:15
*Pulse Oximetry
SaO2: 97
Oxygen Mode of Delivery: Room air
Patient hypoxic: no
*Critical Care Note
Total Time (30-74mins, 75-104mins- exclusive of procedures): Not Applicable
ED Attending Note
-
Portions of this chart may have been created with voice recognition software.� Occasional wrong word or��sound alike� substitutions may have occurred due to the inherent limitations of voice recognition software.
Discharge Plan
Departure
Patient Disposition: Home (Routine Discharge)
Date of Disposition: 09/10/25
Time of Disposition: 06:43
Patient with high blood pressure during this ER visit?: Yes
Condition: Good
Discharge Problem:
Acute urinary retention
Instructions: Blood in the Urine (Hematuria), Adult (DC), Urinary Retention (DC), BLOOD PRESSURE
Prescriptions:
No Action
allopurinol 100 MG tablet
100 mg PO HS
levothyroxine 100 MCG tablet
100 mcg PO DAILY AT 0700
rosuvastatin [Crestor] 40 MG tablet
40 mg PO HS
warfarin 7.5 mg Tablet
7.5 mg PO HS
amlodipine 2.5 mg Tablet
2.5 mg PO BID
tamsulosin [Flomax] 0.4 mg Capsule
0.8 mg PO HS
finasteride 5 mg Tablet
5 mg PO DAILY
ferrous sulfate 324 mg (65 mg iron) Tablet,Delayed Release (Dr/Ec)
324 mg PO DAILY
melatonin 3 mg Capsule
3 mg PO HS PRN (Reason: insomnia)
aspirin 81 mg Capsule
81 mg PO DAILY
colchicine 0.6 mg Tablet
0.6 mg PO PRN PRN (Reason: gout)
Lovenox
1 dose SC DIRECTED
Referrals:
Marvin Simpson MD [Family Provider, Internal Medicine]
Activity Restrictions/Additional Instructions:
Please call Dr. Adame's office later today to schedule a follow-up appointment, you will need to have the catheter removed in a few days.
PLEASE RETURN THE EMERGENCY DEPARTMENT YOU DEVELOP ABDOMINAL PAIN, PELVIC PAIN, BLOCKED CATHETER, FEVERS OR CHILLS, INTRACTABLE NAUSEA OR VOMITING, CHEST PAIN, SHORTNESS OF BREATH, OR ANY NEW SIGNS OR SYMPTOMS WORRISOME TO YOU.
Interventions
Interventions:
*Risk Screen - Suicide Last Done: 09/10/25 00:21
*General Assessment Last Done: 09/10/25 01:48
*Neglect/Abuse Screening Last Done: 09/10/25 01:48
*ED COVID-19 Vaccine History Last Done: 09/10/25 01:48
*ED Influenza Vaccine History Last Done: 09/10/25 01:48
[facility] Fall Risk Assessment Tool Last Done: 09/10/25 01:47
*Nursing Disposition Last Done: 09/10/25 07:03
ED-Male Genitourinary Assessment Last Done: 09/10/25 01:51
Discharge Date and Time
Discharge Date/Time: 09/10/25 07:05
Print Language: LATVIAN
[2025-09-10] MEDS: MORPHINE SULFATE 4 MG IV (01:20)
[2025-09-10] MEDS: NORVASC 2.5 MG PO (01:26)
[2025-09-10 01:37] LABS: Hematocrit 43.1 % (39.0-52.0); Hemoglobin 15.0 g/dL (13.0-18.0); Mean Corp Hgb Conc. 34.8 g/dL (33.0-37.0); Mean Corpuscular Volume 89.2 fL (80.0-94.0); Nucleated Red Blood Cells % 0 % (-); Platelet Count 146 10^3/uL (130-400); Red Cell Dist. Width 13.1 % (11.5-14.5)
[2025-09-10 01:56] LABS: INR 1.06; PT 13.9 Sec (11.4-14.6)
[2025-09-10 01:57] LABS: APTT 25.6 Sec (23.4-35.0)
[2025-09-10 02:02] LABS: ALT (SGPT) 32 U/L (0-50); AST (SGOT) 48 U/L (17-59); Albumin 4.8 g/dl (3.5-5.0); Alkaline Phosphatase 72 U/L (38-126); Blood Urea Nitrogen 21 mg/dl (9-20); Calcium 10.1 mg/dl (8.4-10.2); Carbon Dioxide 22 mmol/L (22-30); Chloride 100 mmol/L (98-107); Estimated Creatinine Clearance 62 ml/min; Glucose 149 mg/dl (70-99); Potassium 4.2 mmol/L (3.5-5.1); Sodium 131 mmol/L (135-145); Total Protein 8.1 g/dl (6.3-8.2); eGFR > 60.00
[2025-09-10 04:48] LABS: Urine Character Slightly Cloudy (Clear)
[2025-09-10 05:03] LABS: Urine Red Blood Cell >100 /HPF (0-2)
[2025-09-10] MEDS: MONUROL 3 GM PO (05:32)
== END 2025-09-10 07:05 | disposition home or self-care (01) ==
LOC: EMR 00:18
PROVIDERS: Physician Assistant; EMERGENCY PHYSICIAN Student in an Organized Health Care Education/Training Program; FAMILY PHYSICIAN Internal Medicine; REFERRING PHYSICIAN Specialist
DX: R33.9 Retention of urine, unspecified (principal); R10.20 Pelvic and perineal pain unspecified side; D49.4 Neoplasm of unspecified behavior of bladder; E03.9 Hypothyroidism, unspecified; E78.00 Pure hypercholesterolemia, unspecified; I10 Essential (primary) hypertension; I25.10 Atherosclerotic heart disease of native coronary artery without angina pectoris; I48.0 Paroxysmal atrial fibrillation; Z86.73 Personal history of transient ischemic attack (TIA), and cerebral infarction without residual deficits; Z79.01 Long term (current) use of anticoagulants; Z95.2 Presence of prosthetic heart valve; Z95.1 Presence of aortocoronary bypass graft
CPT/HCPCS: 96374; 99284; 51702; 36415; 80053; 81003; 81015; 85025; 85610; 85730; 87086

== ENCOUNTER → 2025-09-10 12:20 | Outpatient (REF) | payer MEDICARE, BC, SELFPAY ==
[2025-09-10 13:19] LABS: INR 1.14; PT 14.4 Sec (11.4-14.6)
== END ==
LOC: REG 12:20
PROVIDERS: ATTENDING PHYSICIAN Internal Medicine Cardiovascular Disease; FAMILY PHYSICIAN Internal Medicine
DX: Z95.2 Presence of prosthetic heart valve (principal); Z79.01 Long term (current) use of anticoagulants
CPT/HCPCS: 36415; 85610